=== PATIENT | female | born 1965 | race Caucasian/White ===

== ENCOUNTER 2023-12-24 09:09 | Outpatient (CLI) | payer BC, SELFPAY ==
--- OUTSIDE RECORDS SUMMARY | 2023-12-24 17:23 | XMS_ITS | Clinical Summary ---
Author Organization [facility] Address [address] [facility] [place] [address] Phone Care Team Providers Care Stenocaptioner Name Role Phone Pcp, No Primary Care Provider Unavailabl e Source Comments The [employer] EMR is fully implemented at [facility] across theentire continuum of care.[facility] Allergies No known active allergies Medications * Always verify current medications with the patient. Medication Sig Dispensed Refills Start Date End Date Status NONE Active Social History Tobacco Use Types Packs/Day Years Used Date Smoking Tobacco: Some Days Cigarettes Smokeless Tobacco: Never Alcohol Use Standard Drinks/Week Comments Yes 0 (1 standard drink = 0.6 oz pur e alcohol) ocassionally Sex and Gender Information Value Date Recorded Sex Assigned at Not on file Gender Identity Not on file Sexual Orientation Not on file Last Filed Vital Signs Vital Sign Reading Time Taken Comments Blood Pressure 129/78 09/17/2021 1:30 PM PDT Pulse 89 09/17/2021 1:30 PM PDT Temperature 36.9 ??C (98.5 ??F) 09/17/2021 11:08 AM P DT Respiratory Rate 16 09/17/2021 1:30 PM PDT Oxygen Saturation 99% 09/17/2021 1:30 PM PDT Inhaled Oxygen Concentration - - Weight - - Height 166 cm (5' 5.35) 09/17/2021 11:08 AM PDT Body Mass Index - - Plan of Treatment Health Maintenance Due Date Last Done Comments CRC Screening 1963 CT Colonography Test 1963 Cologuard 1963 Colonoscopy 1963 FIT Test 1963 Flexible Sigmoidoscopy 1963 Hep C Screening 1963 Depression Assessment (PHQ 2 -9 / PHQ A / EPDS) 1975 Tobacco Cessation Counseling 07/05/1981 Cervical Cancer Screening 07/05/1984 HPV or Cotesting 07/05/1984 Pap Smear 07/05/1984 Mammography 07/05/1993 Zoster Vaccine (1 of 2) 07/05/2013 DTaP,Tdap,and Td Vaccines (2 - Td or Tdap) 05/25/2019 05/25/2009 COVID-19 Vaccination (SARS-C oV-2) ( - 2022- season) 2023 Influenza Vaccine (#1) 2024 Pneumococcal Peds and High-R isk Adults Aged Out No longer eligible b ased on patient's age to complete this topic Advance Directives For more information, please contact: [phone] Healthcare Agents on File Name Relationship Healthcare Agent Relationshi p Communication Marcio Bedolla Spouse 4. Emergency Con tact Only - Only Share Emergent Health Information Care Teams Stenocaptioner Relationship Specialty Start Date End Date Pcp, No PCP - General 09/17/21
--- OUTSIDE RECORDS SUMMARY | 2023-12-24 17:23 | XMS_ITS | Clinical Summary ---
Author Organization [facility] Address [address] [place] [id number] Care Team Providers Care Model Maker Name Role Phone Carin Weiss MD Unavailable [phone] Carin Weiss MD Primary Care Provider + Allergies Active Allergy Reactions Criticality Noted Date Comments No Known Allergies 01/13/2001 Medications Medication Sig Dispensed Refills Start Date End Date Status OMEGA 3 1000 MG PO CAPS 3 CAPSULES DAILY WITH A MEAL Active Multiple Vitamin (MULTIVITAMIN ADULT PO) multivitamin Active [place]-3 Fatty Acids (OMEGA 3 PO) [place] 3 Active Cholecalciferol (VITAMIN D3 PO) Vitamin D3 Active Active Problems Problem Noted Date Diagnosed Date 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 Provider to review Resolved Problems Problem Noted Date Diagnosed Date Resolved Date NO ACTIVE PROBLEMS 8 Immunizations Name Administration Dates Next Due HEPA 05/25/2009 TDAP Vaccine (Boostrix) 05/25/2009 Family History Medical History Relation Comments C.A.D. Father Hypertension Father Lipids Father Cancer Maternal Grandmother mouth/smoke r Diabetes No family hx of Relation Status Comments Brother 1 Alive Brother 2 Alive Father Alive Maternal Grandmother Mother Alive Sister Alive Social History Tobacco Use Types Packs/Day Years Used Date Smoking Tobacco: Light Smoker Cigarettes Smokeless Tobacco: Never Alcohol Use Standard Drinks/Week Comments Yes 1.7 (1 standard drink = 0.6 oz p ure alcohol) occasionally Adolescent Education Answer Date Record ed Getting School Help Needed Not on file 02/03 Sex and Gender Information Value Date Recorded Sex Assigned at Not on file Gender Identity Female 11/11/2020 9:10 AM CDT Sexual Orientation Straight 11/11/2020 9: 10 AM CDT Last Filed Vital Signs Vital Sign Reading Time Taken Comments Blood Pressure 150/90 11/11/2020 10:15 AM CDT Pulse 68 11/11/2020 10:15 AM CDT Temperature 36.8 ??C (98.2 ??F) 10/17/2018 3:12 PM CD T Respiratory Rate 16 10/17/2018 3:12 PM CDT Oxygen Saturation 95% 10/17/2018 7:15 PM CDT Inhaled Oxygen Concentration - - Weight 64.9 kg (143 lb) 11/11/2020 10:15 AM CDT Height 165.1 cm (5' 5) 10/17/2018 3:12 PM CDT Body Mass Index 23.8 10/17/2018 3:12 PM CDT Plan of Treatment Health Maintenance Due Date Last Done Comments ADVANCE CARE PLANNING 1965 ANNUAL REVIEW OF HM ORDERS 1963 CT COLONOGRAPHY 1963 FIT 1963 FLEX SIG 1963 YEARLY PREVENTIVE VISIT 1963 sDNA (Cologuard) 1963 Pneumococcal Vaccine: Pediatrics (0 to 5 Years) and At-Risk Patients (6 to 64 Years) (1 of 2 - PCV) 07/05/1969 COLONOSCOPY 07/05/1973 COLORECTAL CANCER SCREENING 07/05/1973 HIV SCREENING 07/05/1978 HEPATITIS C SCREENING 07/05/1981 PAP 07/05/1984 LIPID 2003 LUNG CANCER SCREENING 07/05/2013 ZOSTER IMMUNIZATION (1 of 2) 07/05/2013 DTAP/TDAP/TD IMMUNIZATION (2 - Td or Tdap) 05/25/2019 05/25/2009 GLUCOSE 10/17/2021 10/17/2018, 12/05, 05/20/2009 COVID-19 Vaccine (3 - 2022- season) 2023 09/20/2020, 08/26/2020 PHQ-2 (once per calendar year) 2023 RSV VACCINE ( & 60+) (1 - 1-dose 60+ series) 2023 INFLUENZA VACCINE (#1) 2024 MAMMO SCREENING 05/08/2025 05/08/2023, 04/05, 04/21/2021, Additional history exists HPV IMMUNIZATION Aged Out No longer e ligible based on patient's age to complete this topic IPV IMMUNIZATION Aged Out No longer e ligible based on patient's age to complete this topic MENINGITIS IMMUNIZATION Aged Out No l onger eligible based on patient's age to complete this topic RSV MONOCLONAL ANTIBODY Aged Out No l onger eligible based on patient's age to complete this topic Procedures Procedure Name Priority Date/Time Associated Diagnosis Comments MA SCREENING BILATERAL W/ EDD Routine 05/08/2023 10:51 AM [employer]AT [employer]ER Visit for screening mammogram BASIC METABOLIC PANEL STAT 10/17/2018 3:32 PM CDT from Last 3 Months or Most Recently Relevant to Health Maintenance Results * MA Screen Bilateral w/Edd (05/08/2023 10:51 AM [employer]ER) Anatomical Region Laterality Modality Breast Bilateral Mammography Impressions 05/08/2023 10:59 AM [employer] IMPRESSION: ACR BI-RADS Category 1: Negative RECOMMENDED FOLLOW-UP: Annual routine screening mammogram The results and recommendations of this examination will be communicated to the patient. Darryl Sanchez MD Narrative 05/08/2023 10:59 AM FL[employer] BILATERAL FULL FIELD DIGITAL SCREENING MAMMOGRAM WITH TOMOSYNTHESIS Performed on: 05/08/23 Compared to: 04/23/2022, 04/21/2021, and 04/20/2020 Technique: ??This study was evaluated with the assistance of Computer-Aided Detection. ??Breast Tomosynthesis was used in interpretation. Findings: The breasts are heterogeneously dense, which may obscure small masses. ??There is no radiographic evidence of malignancy. Carin Echo Weiss MD IMG MAMMOGRAPHY ORDERABLES * Basic metabolic panel (10/17/2018 3:32 PM CDT) Sodium 137 133 - 144 mmol/L 10/17/2018 4:13 PM CDT [facility] Potassium 3.8 3.4 - 5.3 mmol/L 10/17/2018 4:13 PM CDT [facility] Chloride 104 94 - 109 mmol/L 10/17/2018 4:13 PM CDT [facility] Carbon Dioxide 26 20 - 32 mmol/L 10/17/2018 4:[address] [facility] Anion Gap 7 3 - 14 mmol/L 10/17/2018 4:[address] [facility] Glucose 79 70 - 99 mg/dL 10/17/2018 4:[address] [facility] Urea Nitrogen 20 7 - 30 mg/dL 10/17/2018 4:[address] [facility] Creatinine 0.71 0.52 - 1.04 mg/dL 10/17/2018 4:[address] [facility] GFR Estimate >90 >60 mL/min/{1. 73_m2} 10/17/2018 4:[address] [facility] Comment: Non GFR Calc Starting 04/22/2018, serum creatinine based estimated GFR (eGFR) will be calculated using the Chronic Kidney Disease Epidemiology Collaboration (CKD-EPI) equation. GFR Estimate If Black >90 >60 mL/min/{1. 73_m2} 10/17/2018 4:[address] [facility] Comment: GFR Calc Starting 04/22/2018, serum creatinine based estimated GFR (eGFR) will be calculated using the Chronic Kidney Disease Epidemiology Collaboration (CKD-EPI) equation. Calcium 9.2 8.5 - 10.1 mg/dL 10/17/2018 4:[address] [facility] Blood specimen (specimen) 10/17/2018 3:32 PM CDT 10/17/2018 3:53 PM CDT Andry Mckeon MD LAB - BLOOD ORDERABL ES [facility] [address] [id number], [facility] [phone] [facility] [address] [place] [address], [facility] [phone] from Last 3 Months or Most Recently Relevant to Health Maintenance Care Teams Model Maker Relationship Specialty Start Date End Date Carin Weiss MD [address] [phone] PCP - General regional forester 04/21/21 Carin Weiss MD [address] [phone] regional forester 10/27/20
--- OUTSIDE RECORDS SUMMARY | 2023-12-24 17:23 | XMS_ITS | Clinical Summary ---
Author Organization [facility] Address [place], [place] [address] Care Team Providers Care Reinforcer Name Role Phone Clinic, [facility] Primary Care Provider Unav ailable Allergies No known active allergies Medications No known medications Immunizations Name Administration Dates Next Due Hepatitis A, Unspecified 05/25/2009 Tdap 05/25/2009 Social History Tobacco Use Types Packs/Day Years Used Date Smoking Tobacco: Never Smokeless Tobacco: Never Alcohol Use Standard Drinks/Week Comments Yes 0 (1 standard drink = 0.6 oz pur e alcohol) PHQ-2 Answer Date Recorded PHQ-2 Score 0 02/24/2019 Sex and Gender Information Value Date Recorded Sex Assigned at Not on file Gender Identity Not on file Sexual Orientation Not on file Obstetrics History Last Filed Vital Signs Vital Sign Reading Time Taken Comments Blood Pressure 131/93 11/11/2021 12:55 AM CDT Pulse 67 11/11/2021 12:55 AM CDT Temperature 36.4 ??C (97.6 ??F) 11/11/2021 12:55 AM C DT Respiratory Rate 18 11/11/2021 12:55 AM CDT Oxygen Saturation 97% 11/11/2021 12:55 AM CDT Inhaled Oxygen Concentration - - Weight 65.8 kg (145 lb) 11/11/2021 12:55 AM CDT Height 165.1 cm (5' 5) 11/11/2021 12:55 AM CDT Body Mass Index 24.13 11/11/2021 12:55 AM CDT Plan of Treatment Health Maintenance Due Date Last Done Comments HIV for age 15-65 07/05/1978 BMI (ht and wt on same day) for age 18+ 07/05/1981 Hepatitis C screening for ag e 18-79 07/05/1981 Pap test for age 21-65 07/05/1984 Colonoscopy through age 75 07/05/2008 Lipids for age 45-75 07/05/2008 Mammogram for age 45-75 07/05/2008 Zoster (shingles) series for age 50+ (1 of 2) 07/05/2013 Tetanus booster 05/25/2019 05/25/2009 Depression screening for age 12+ 02/25/2020 02/24/2019 COVID-19 vaccine series (2022- season) 2023 09/20/2020, 08/26/2020 Influenza for age 50-64 01/05/2024 Tdap Completed 05/25/2009 Pneumococcal series for age 6-64 Aged Out No longer eligible b ased on patient's age to complete this topic Care Teams Reinforcer Relationship Specialty Start Date End Date Carolin Urban PCP - General Obstetrics and Gynecology 02/13/13
--- OUTSIDE RECORDS SUMMARY | 2023-12-24 17:24 | XMS_ITS | Data Portability ---
Author Organization [facility] [employer], [id number] Address [address] [place] [address] Assessment No assessment recorded. Plan of Treatment Reminders Order Date Submit Date Provider Last Modified By Organization Details Last Modified Time Details Appointments None recorded. Lab hemoglobin (Hb), fingerstick , blood 2020 021 [email or web address] 9 [id number] _[place] , [address] [place] [address], [address], [place], [address], 12:19:28 cytology report, thin prep, smear or scraping, cervical or vaginal 2021 022 [place] [facility], [address], [place], [address], 13:13:10 Referral None recorded. Procedures None recorded. Surgeries None recorded. Imaging None recorded. Medication Orders estradiol 0.01% (0.1 mg/gram) vaginal cream [address] [facility], [address] [place], [address], 2 16:41:36 Patient TargetsNo targets recorded. Patient InstructionsNo instructions recorded. Reason for Referral None Reported. Results Created Date Observation Date Name Description Value Unit Range Abnormal Flag LastModifiedBy Organization Detail LastModifiedTime 07/21/2020 hemog lobin (Hb), finge rstic k, blood fingerstick hemoglobin 13.7 g/dL 12.0-1 5.0 Not Available [id number] le_[place] [address] [facility] [address], [place], [address], 07/21/2020 12:11:11 07/22/19 21 07/21/2020 pap, LB + refle x HR HPV case report See note Not Available [facility] [address], [place], [address], 07/28/2020 13:01:47 07/25/19 22 07/25/2021 IGP, APTIM A HPV, RFX 16/18 ,45 HPV aptima Negati ve negati ve Not Available [facility] (Lab) [id number] [place] [address], [place], [address], 07/26/2021 13:13:10 07/25/19 22 07/26/2021 IGP, APTIM A HPV, RFX 16/18 ,45 interpretati on NILM,A SMR Not Available [facility] (Lab) [address] [address], [place], [address], 07/26/2021 13:13:10 07/25/19 22 07/26/2021 IGP, APTIM A HPV, RFX 16/18 ,45 category: NIL Not Available [facility] (Lab) [address] [address], [place], [address], 07/26/2021 13:13:10 07/25/19 22 07/26/2021 IGP, APTIM A HPV, RFX 16/18 ,45 adequacy: ENDO Not Available [facility] (Lab) [address] [address], [place], [address], 07/26/2021 13:13:10 07/25/19 22 07/26/2021 IGP, APTIM A HPV, RFX 16/18 ,45 clinician provided ICD10: Elana t Not Available [facility] (Lab) [address] [address], [place], [address], 07/26/2021 13:13:10 07/25/19 22 07/26/2021 IGP, APTIM A HPV, RFX 16/18 ,45 performed by: Elana noriega Not Available [facility] (Lab) [address] [facility] [address], [place], [address], 07/26/2021 13:13:10 07/25/19 22 07/26/2021 IGP, APTIM A HPV, RFX 16/18 ,45 note: Elana noriega Not Available [facility] (Lab) [address] [facility] [address], [place], [address], 07/26/2021 13:13:10 07/25/19 22 07/26/2021 IGP, APTIM A HPV, RFX 16/18 ,45 test methodology: Elana noriega Not Available [facility] (Lab) [address] [facility] [address], [place], [address], 07/26/2021 13:13:10 04/23/20 22 04/23/2022 MAMMO , scree wyatt, tomos ynthe sis, bilat eral, w/ CAD No observ ation record ed. [email or web address] [facility] [address] [facility], [place], [address], 04/23/2022 16:12:07 05/08/19 24 05/08/2023 MAMMO , scree wyatt, tomos ynthe sis, bilat eral, w/ CAD No observ ation record ed. [email or web address] [facility] [address] [facility] [place], [address], 05/08/2023 12:14:56 Result Notes None recorded. 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 Procedures Surgical History Date Name Laterality Status Provider Name and Address Organization Details Recorded Time 05/08/19 24 Date of Last Mammogram completed Ravinderreza Cisneros null, [place] - [facility] [employer] 05/08/2023 12:14:42 07/25/19 22 Date of Last Pap Smear completed Nae Feliberto jacobs, [place] - [facility] [employer] 08/04/2021 11:22:48 04/13/20 21 Date of Last [place] [address] [facility],[address], [place], [address], [place] - [facility] [employer] 05/16/2020 12:00:42 tonsillectomy completed Not Available [facility] 12/14/2019 01:04:40 Imaging Results Imaging Date Name Status LastModified by Organiz ation Details LastModified Time 04/23/2022 MAMMO, screening, tomosynthe sis, bilateral, w/ CAD completed [email or web address] [facility] [address] [facility], [place], [address], 04/23/2022 16:12:07 05/08/2023 MAMMO, screening, tomosynthe sis, bilateral, w/ CAD completed [email or web address] [facility] [address] [facility], [place], [address], 05/08/2023 12:14:56 Procedure Notes None recorded. Medical Equipment None Reported. Allergies No known drug allergies Medications Name Sig Start Date Stop Date Status Note LastModified by Organization Details LastModified Time minocycline 100 mg capsule TAKE 1 CAPSULE BY MOUTH TWICE DAILY FOR 1 MONTH FOR PERIORAL DERMATITI S 07/21 completed Not Available Not Available Not Available fluorouraci l 5 % topical cream APPLY A THIN LAYER OF CREAM TOPICALLY TO ACTINIC DAMAGE ON CHEEKS AND NOSE TWICE DAILY FOR 2 WEEKS active Not Available Not Available No t Available valacyclovi r 500 mg tablet 07/29 completed Not Available Not Available Not Available estradiol 0.01% (0.1 mg/gram) vaginal cream 1/2 gram vaginally for 14 days, Then 2-3 times per week. 07/24 completed Not Available Not Available Not Available Vitamin D3 active Not Available Not Av ailable Not Available [place] 3 07/29 completed Not Available Not Available Not Available multivitami n 07/29 completed Not Available Not Available Not Available Vitals Date Recorded Body height Body mass index (BMI) Body weight Systolic blood pressure Diastolic blood pressure Provider Name and Address Organization Details Last Updated DateTime 07/24/2021 165.1 cm 24.6 kg/m2 51224.67 g 140 mm[Hg] 96 mm[Hg] Jinny Syed( TERM) [facility] [employer] 2 16:41:17 Date Recorded Body height Body mass index (BMI) Body weight Systolic blood pressure Diastolic blood pressure Provider Name and Address Organization Details Last Updated DateTime 07/30/2022 165.1 cm 24.4 kg/m2 72051.64 g 126 mm[Hg] 86 mm[Hg] Corazon Evgeny [facility] [employer] ENGINEER[employer] TE[employer] 3 15:34:37 Date Recorded Body height Body mass index (BMI) Body weight Systolic blood pressure Diastolic blood pressure Systolic blood pressure Diastolic blood pressure Provider Name and Address Organization Details Last Updated DateTime 1 165.1 cm 23.8 kg/m2 40268.7 1 g 134 mm[Hg] 100 mm[Hg] 136 mm[Hg] 100 mm[Hg] Kelsy Bunch (TERMED) [facility] [employer] ENG[employer]ER[employer] TE[employer] 1 12:09:36 Social History Question Answer Notes LastModified by Organizat ion Details LastModified Time Tobacco Smoking Status Former Smoker Corazon Evgeny jacobs [facility] [employer] 07/30/2022 14:26:21 What Is Your Level Of Alcohol Consumption? Occasional Current Some Day [email or web address] Information not available 07/30/2022 What Is Your Level Of Caffeine Consumption? Moderate 3c/day Information not available 07/30/2022 Which Illicit Or Recreational Drugs Have You Used? Denies Illicit Substance Abuse Information not available 07/30/2022 Children's Names/ Stephen [email or web address] Information not available 07/30/2022 History Of Domestic Violence No Denies All Domestic Violence Information not available 12/14/2019 Spouse/Partners Name Marcio [email or web address] Information not available 07/30/2022 What Is Your Relationship Status? Information not available 07/30/2022 Do You Use Any Illicit Or Recreational Drugs? No Information not available 07/30/2022 Sex: Unknown Functional Status Question Answer Note LastModified by Organizat ion Details LastModified Time What is your exercise level? Occasional Active but no formal exercise Information not available 12/14/2019 Mental Status None recorded. Family History Relationship Description Onset Age of this Age Resolved Age Notes Maternal Grandmother Family history of breast cancer Cancer Breast Maternal Grandmother Cerebrovascular accident Father Benign essential hypertension Hypertension Paternal Grandmother Disorder of bone and articular cartilage Osteoporosis Mother Hypertensive disorder Medical History Condition Response Endocrinology- Osteopenia Y Gynecological History Statement/Question Response History of Abnormal PAP Y HPV Test Negative Date of Last Mammogram 05/08/2023 Date of Last Colonoscopy 04/13/2021 Date of LMP Date of Last Pap Smear 07/24/2021 Date of last bone density 11/27/2012 Obstetrics History GPAL:G 5 P 4 0 1 4 Type Value Multiple Births 0 Full Term 4 Induced 1 Spontaneous 0 Premature 0 Living 4 Ectopics 0 Total 5 Immunizations Vaccine Type Date Status Provider Name and Address Organization Details Recorded Time COVID-19, mRNA, LNP-S, PF, 30 mcg/0.3 mL dose 08/26/2020 completed Corazon Will null, [place] - [facility] [employer] 07/30/2022 15:30:03 COVID-19, mRNA, LNP-S, PF, 30 mcg/0.3 mL dose 09/20/2020 completed Corazon [place] [facility] 07/30/2022 15:30:03 Tdap 05/25/2009 completed Corazon [place] [employer] 07/30/2022 15:30:03 Hep A, adult 05/25/2009 completed Corazon Will null[place] [employer] 07/30/2022 15:30:03 Past Encounters Encounter ID Performer Location Encounter Start Date Encounter Closed Date Diagnosis/Indication Diagnosis SNOMED-CT Code [id number] MIRANDA DOVE MD [id number] [facility] [address] [facility] [address], [address] [place] [address] 07/21/2020 11:53:18 07/21/2020 12:46:16 Gynecologic examination [id number] Dyspareunia [id number] Elevated blood-pressure reading without diagnosis of hypertension [id number] MIRANDA DOVE MD [id number] [place] [address] [facility] [address], [address] [place] [address] 07/24/2021 16:30:57 07/24/2021 17:49:57 Gynecologic examination [id number] MIRANDA DOVE MD [id number] [place] [address] [facility], [address] [place] [address] 07/30/2022 15:24:33 07/31/2022 08:50:15 Gynecologic examination [id number] Health Concerns Section Related Observation LastModified by Organization Detai ls LastModified Time None Recorded Concern Status LastModified by Organization Details LastModified Time None Recorded Advance Directives Directive None Recorded Payers Encounter Date Sequence Insurance Name Policy Number Policy [place] Covered Member ID Franklin Member ID Guarantor Name 07/21/2020 1 [employer] [employer] [place]) [id number] Marcio Bedolla [id number] Shae A Beodlla 07/24/2021 1 [employer] [place] [employer] [employer] [place] [id number] Marcio Bedolla [id number] Shae A Bedolla 07/30/2022 1 [employer] [employer] [place]) [id number] Marcio Bedolla [id number] Shae A Bedolla Notes Date Note Type Note Provider Name and Address Organization Details Recorded Time 07/21/2020 text/html HPI Notes: Annua l Postmenopausal ([facility]) Reported by patient. Patient Relationship To Practice: established patient Relevant Family History: no family history of breast cancer Menopausal Symptoms: not present Vaginal Bleeding: no Health/Prevention: Exercise: yes Pt took her BP at home and it was 120/89 and 130/[place] [address] [facility],[address], [place], [address], [place] - [facility] [employer] 07/21/2020 12:44:39 07/24/2021 text/html HPI Notes: Annua l Postmenopausal ([facility]) Reported by patient. Patient Relationship To Practice: established patient Relevant Family History: no family history of breast cancer Menopausal Symptoms: not present Vaginal Bleeding: no Health/Prevention: Exercise: yes Pt took her BP at home and it was normal at home. Pt had palpitations after the 2nd Pfizer vaccination. [place] [address] [facility],[address], [place], [address], [facility] [employer] 07/24/2021 17:48:45 07/30/2022 text/html HPI Notes: Arturo murphy Postmenopausal ([facility]) Reported by patient. Patient Relationship To Practice: established patient Relevant Family History: no family history of breast cancer Menopausal Symptoms: not present Vaginal Bleeding: no Health/Prevention: Exercise: [place] [address] [address] [facility],[address], [place], [address], [facility] [employer] 07/30/2022 18:25:42 OBGyn Episode Ob Episode Information Episode Created Date Number of Fetuses Patient Bloodtype Patient rh Status Prepregnancy Weight lbs Domestic Partner Domestic Partner Phone Father Name [employer] Supervisor Status 07/22/19 21 1 CLOSED Fetus Data First Name Last Name Admitted to NICU Weight (g) Sex Living Outcome Pediatric Complications Fetus ID Race Codes Race Delivery Type F Full Term [id number] Jax Calculation Initial Jax Date Initial Exam Date Initial Exam Provider Initial Ultrasound Date Last Menstrual Period Date Ultra Sound Weeks Gestation 0 Eighteen To Twenty Week Jax Update Ultra Sound Date Fundal Height At Umbil Quickening Date Ultra Sound Latest Weeks Gestation Final Jax Confirmed By Final Jax Confirmed Date Final Jax Date Ultra Sound Latest Days Gestation 0 0 Menstrual History Last Menstrual Date Menses Monthly On Bcp Conception Prior Menses Frequency Hcg Plus Date Menarche Onset Age Delivery Information Delivery Date Delivery Type Labor Anesthesia Weeks Gestation Incision Type Labor Labor Length Hrs Delivered By Post Complications Tubal Sterilization Discharge Date Comments 5 Discharge Information Feeding Method Contraceptive Method Maternal HG B and HCT Levels Ob Episode Information Episode Created Date Number of Fetuses Patient Bloodtype Patient rh Status Prepregnancy Weight lbs Domestic Partner Domestic Partner Phone Father Name [employer] Supervisor Status 07/22/19 21 1 CLOSED Fetus Data First Name Last Name Admitted to NICU Weight (g) Sex Living Outcome Pediatric Complications Fetus ID Race Codes Race Delivery Type M Full Term [id number] Jax Calculation Initial Jax Date Initial Exam Date Initial Exam Provider Initial Ultrasound Date Last Menstrual Period Date Ultra Sound Weeks Gestation 0 Eighteen To Twenty Week Jax Update Ultra Sound Date Fundal Height At Umbil Quickening Date Ultra Sound Latest Weeks Gestation Final Jax Confirmed By Final Jax Confirmed Date Final Jax Date Ultra Sound Latest Days Gestation 0 0 Menstrual History Last Menstrual Date Menses Monthly On Bcp Conception Prior Menses Frequency Hcg Plus Date Menarche Onset Age Delivery Information Delivery Date Delivery Type Labor Anesthesia Weeks Gestation Incision Type Labor Labor Length Hrs Delivered By Post Complications Tubal Sterilization Discharge Date Comments 7 Discharge Information Feeding Method Contraceptive Method Maternal HG B and HCT Levels Ob Episode Information Episode Created Date Number of Fetuses Patient Bloodtype Patient rh Status Prepregnancy Weight lbs Domestic Partner Domestic Partner Phone Father Name [employer] Supervisor Status 07/22/19 21 1 CLOSED Fetus Data First Name Last Name Admitted to NICU Weight (g) Sex Living Outcome Pediatric Complications Fetus ID Race Codes Race Delivery Type M Full Term [id number] Jax Calculation Initial Jax Date Initial Exam Date Initial Exam Provider Initial Ultrasound Date Last Menstrual Period Date Ultra Sound Weeks Gestation 0 Eighteen To Twenty Week Jax Update Ultra Sound Date Fundal Height At Umbil Quickening Date Ultra Sound Latest Weeks Gestation Final Jax Confirmed By Final Jax Confirmed Date Final Jax Date Ultra Sound Latest Days Gestation 0 0 Menstrual History Last Menstrual Date Menses Monthly On Bcp Conception Prior Menses Frequency Hcg Plus Date Menarche Onset Age Delivery Information Delivery Date Delivery Type Labor Anesthesia Weeks Gestation Incision Type Labor Labor Length Hrs Delivered By Post Complications Tubal Sterilization Discharge Date Comments 7 Discharge Information Feeding Method Contraceptive Method Maternal HG B and HCT Levels Ob Episode Information Episode Created Date Number of Fetuses Patient Bloodtype Patient rh Status Prepregnancy Weight lbs Domestic Partner Domestic Partner Phone Father Name [employer] Supervisor Status 07/22/19 21 1 CLOSED Fetus Data First Name Last Name Admitted to NICU Weight (g) Sex Living Outcome Pediatric Complications Fetus ID Race Codes Race Delivery Type M Full Term [id number] Jax Calculation Initial Jax Date Initial Exam Date Initial Exam Provider Initial Ultrasound Date Last Menstrual Period Date Ultra Sound Weeks Gestation 0 Eighteen To Twenty Week Jax Update Ultra Sound Date Fundal Height At Umbil Quickening Date Ultra Sound Latest Weeks Gestation Final Jax Confirmed By Final Jax Confirmed Date Final Jax Date Ultra Sound Latest Days Gestation 0 0 Menstrual History Last Menstrual Date Menses Monthly On Bcp Conception Prior Menses Frequency Hcg Plus Date Menarche Onset Age Delivery Information Delivery Date Delivery Type Labor Anesthesia Weeks Gestation Incision Type Labor Labor Length Hrs Delivered By Post Complications Tubal Sterilization Discharge Date Comments 9 Discharge Information Feeding Method Contraceptive Method Maternal HG B and HCT Levels
--- OUTSIDE RECORDS SUMMARY | 2023-12-24 17:24 | XMS_ITS | Referral Summary ---
Author Organization [facility] Address [address] [place] [address] Care Team Providers Care Pig Caster Name Role Phone Carin Weiss MD Unavailable [phone] Carin Weiss MD Primary Care Provider + Allergies Active Allergy Reactions Criticality Noted Date Comments No Known Allergies 01/13/2001 Medications Medication Sig Dispensed Refills Start Date End Date Status OMEGA 3 1000 MG PO CAPS 3 CAPSULES DAILY WITH A MEAL Active Multiple Vitamin (MULTIVITAMIN ADULT PO) multivitamin Active [place]-3 Fatty Acids (OMEGA 3 PO) [place] 3 Active Cholecalciferol (VITAMIN D3 PO) Vitamin D3 Active Active Problems Problem Noted Date Diagnosed Date 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 Provider to review Resolved Problems Problem Noted Date Diagnosed Date Resolved Date NO ACTIVE PROBLEMS 8 Immunizations Name Administration Dates Next Due HEPA 05/25/2009 TDAP Vaccine (Boostrix) 05/25/2009 Social History Tobacco Use Types Packs/Day [...] 10/17/2018 3:12 PM CDT Plan of Treatment Not on file Procedures Procedure Name Priority Date/Time Associated Diagnosis Comments MA SCREENING BILATERAL W/ EDD Routine 05/08/2023 10:51 AM CHILD PSYCHIATRIST Visit for screening mammogram BASIC METABOLIC PANEL STAT 10/17/2018 3:32 PM CDT from Last 3 Months or Most Recently Relevant to Health Maintenance Results * MA Screen Bilateral w/Edd (05/08/2023 10:51 AM CHILD PSYCHIATRIST) Anatomical Region Laterality Modality Breast Bilateral Mammography Impressions 05/08/2023 10:59 AM CHILD PSYCHIATRIST IMPRESSION: ACR BI-RADS Category 1: Negative RECOMMENDED FOLLOW-UP: Annual routine screening mammogram The results and recommendations of this examination will be communicated to the patient. Darryl Sanchez MD Narrative 05/08/2023 10:59 AM CHILD PSYCHIATRIST BILATERAL FULL FIELD DIGITAL SCREENING MAMMOGRAM WITH [...] - 144 mmol/L 10/17/2018 4:[address] [facility] Potassium 3.8 3.4 - 5.3 mmol/L 10/17/2018 4:[address] [facility] Chloride 104 94 - 109 mmol/L 10/17/2018 4:13 PM [facility] Carbon Dioxide 26 20 - 32 mmol/L 10/17/2018 4:[address] [facility] Anion Gap 7 3 - 14 mmol/L 10/17/2018 4:[address] [facility] Glucose 79 70 - 99 mg/dL 10/17/2018 4:[address] [facility] Urea Nitrogen 20 7 - 30 mg/dL 10/17/2018 4:20 PM [facility] Creatinine 0.71 0.52 - 1.04 mg/dL 10/17/2018 4:20 PM [facility] GFR Estimate >90 >60 mL/min/{1. 73_m2} 10/17/2018 4:[address] [facility] Comment: Non GFR Calc Starting 04/22/2018, serum creatinine based estimated GFR (eGFR) will be calculated using the Chronic Kidney Disease Epidemiology Collaboration (CKD-EPI) equation. GFR Estimate If Black >90 >60 mL/min/{1. 73_m2} 10/17/2018 4:[address] [facility] Comment: GFR Calc Starting 04/22/2018, serum creatinine based estimated GFR (eGFR) will be calculated using the Chronic Kidney Disease Epidemiology Collaboration (CKD-EPI) equation. Calcium 9.2 8.5 - 10.1 mg/dL 10/17/2018 4:[address] [facility] Blood specimen (specimen) 10/17/2018 3:32 PM CDT 10/17/2018 3:53 PM CDT Andry Mckeon MD LAB - BLOOD ORDERABL ES [facility] [address] [place] [address], [facility] [phone] [facility] [address] [place] [address], [facility] [phone] from Last 3 Months or Most Recently Relevant to Health Maintenance Care Teams Pig Caster Relationship Specialty Start Date End Date Carin Weiss MD [address] [phone] PCP - General collar pointer 04/21/21 Carin Weiss MD [address] [facility] [address] [place] [address] collar pointer 10/27/20
== END 2023-12-24 09:10 | disposition home or self-care (01) ==
LOC: NFLDREF 17:21
PROVIDERS: Visit Provider Physician Assistant Medical
DX: N30.00 Acute cystitis without hematuria (principal); N39.0 Urinary tract infection, site not specified
CPT/HCPCS: 87086